=== PATIENT | male | born 1960 | race Caucasian/White ===

== ENCOUNTER 2021-04-07 16:54 | Emergency (ER) | payer OTHER ==
[~2021-04-07 16:54] MED LIST: CENTURY ULTIMA1 EAC1 PO; CLOBETASOL PROP50 ML TOP; VITAMIN D2000 UNI1 PO
[2021-04-07 18:27] LABS: BASOPHIL 0.7 % (0-2); EOSINOPHIL 0.8 % (0-5); HCT 44.4 % (42.0-52.0); HGB 14.8 g/dl (13.2-18.0); LYMPHOCYTE 19.9 % (15-48); MCHC 33.3 g/dL (32.0-36.0); MCV 92.9 fL (78.0-100.0); MONOCYTE 9.6 % (0-12); MPV 10.3 fL (6.0-9.5); NEUTROPHIL 68.7 % (41-80); NRBC 0; PLT 250 K/uL (150-400); RBC 4.78 M/uL (4.70-6.00); RDW 11.9 % (11.5-14.0); WBC 8.8 K/uL (4.0-10.5)
[2021-04-07 19:01] LABS: BUN/CREAT RATIO (CALC) 19.8 RATIO; CREATININE 0.81 mg/dL (0.67-1.17); POTASSIUM 4.1 mmol/L (3.5-5.1)
[2021-04-07] MEDS ORDERED: ATARAX25 MG PO (19:52)
== END 2021-04-07 20:18 | disposition home or self-care (01) ==
LOC: FER 16:54
PROVIDERS: Nurse Practitioner Family
DX: F41.1 Generalized anxiety disorder (principal); G47.00 Insomnia, unspecified; Z88.0 Allergy status to penicillin; Z88.1 Allergy status to other antibiotic agents; Z87.891 Personal history of nicotine dependence
CPT/HCPCS: 36415; 80048; 85025; 93005